=== PATIENT | female | born 1980 | race Caucasian/White ===

== ENCOUNTER → 2023-09-08 15:12 | Outpatient (REF) | payer OTHER, SELFPAY | LOC: WDC 15:12 | PROVIDERS: ATTENDING PHYSICIAN Nurse Practitioner Primary Care | DX: Z12.31 Encounter for screening mammogram for malignant neoplasm of breast (principal) | CPT/HCPCS: 77063; 77067 ==

== ENCOUNTER 2023-11-17 07:50 | Outpatient (RCR) | payer OTHER, SELFPAY ==
[2023-10-26 11:30] VITALS: BP 152/99
[2023-10-26] MEDS: NSS 1000 IV ×2 (11:43→12:43)
[2023-11-14 10:29] VITALS: BP 145/100
[2023-11-14] MEDS: NSS 1000 IV ×2 (10:29→11:30)
[2023-11-14] MEDS: ATIVAN 3 ML IV (10:59)
[2023-11-14] MEDS: ATIVAN 3 MG IV (10:59)
[2023-11-17 08:00] VITALS: BP 111/77
[2023-11-17] MEDS: NSS 1000 IV (08:00)
--- NOTE | 2023-11-17 09:04 | PTCARENOTE ---
Pt's labs back from 11/14/23, pt's potassium level at 2.8; Dr. Lopez notified via office and verbal orders obtained for KCL 40meq IV over 4 hours, and to have pt call office for follow up labs. Pt made aware of plan, will follow.
[2023-11-17] MEDS: KCL 1020 MEQ IV (09:16)
== END 2023-11-21 23:59 | disposition home or self-care (01) ==
LOC: OID 07:50
PROVIDERS: ATTENDING PHYSICIAN Internal Medicine; FAMILY PHYSICIAN Nurse Practitioner Primary Care
DX: R11.15 Cyclical vomiting syndrome unrelated to migraine (principal)
CPT/HCPCS: 96360; 96361; 96365; 96366; 96374

== ENCOUNTER → 2023-12-09 11:11 | Outpatient (REF) | payer OTHER, SELFPAY | LOC: RCS 11:11 | PROVIDERS: ATTENDING PHYSICIAN Nurse Practitioner Primary Care | DX: I10 Essential (primary) hypertension (principal); G90.1 Familial dysautonomia [Riley-Day]; G62.89 Other specified polyneuropathies | CPT/HCPCS: 93306 ==

== ENCOUNTER 2024-01-10 13:40 | Outpatient (RCR) | payer OTHER, SELFPAY ==
[2024-01-10] MEDS: NSS 1000 IV ×2 (13:53→15:01)
[2024-01-10 14:12] VITALS: BP 145/88
== END 2024-01-21 23:59 | disposition home or self-care (01) ==
LOC: OID 13:40
PROVIDERS: ATTENDING PHYSICIAN Internal Medicine; FAMILY PHYSICIAN Nurse Practitioner Primary Care
DX: R11.15 Cyclical vomiting syndrome unrelated to migraine (principal)
CPT/HCPCS: 96360; 96361

== ENCOUNTER 2024-02-01 09:11 | Outpatient (RCR) | payer OTHER, SELFPAY ==
[2024-02-01 07:30] VITALS: BP 132/97
[2024-02-01] MEDS: NSS 1000 IV ×2 (09:34→10:37)
[2024-02-01 11:40] VITALS: BP 138/99
== END 2024-02-21 23:59 | disposition home or self-care (01) ==
LOC: OID 09:11
PROVIDERS: ATTENDING PHYSICIAN Internal Medicine; FAMILY PHYSICIAN Nurse Practitioner Primary Care
DX: R11.15 Cyclical vomiting syndrome unrelated to migraine (principal)
CPT/HCPCS: 96360; 96361

== ENCOUNTER 2024-03-21 08:15 | Outpatient (RCR) | payer OTHER, SELFPAY ==
[2024-03-21] MEDS: NSS 1000 IV ×2 (08:48→10:25)
[2024-03-21 08:51] VITALS: BP 155/91
[2024-03-21] MEDS: ATIVAN 1 ML IV (08:55)
[2024-03-21] MEDS: ATIVAN 1 MG IV (08:55)
== END 2024-03-22 09:01 | disposition home or self-care (01) ==
LOC: OID 08:15
PROVIDERS: ATTENDING PHYSICIAN Internal Medicine; FAMILY PHYSICIAN Nurse Practitioner Primary Care
DX: R11.15 Cyclical vomiting syndrome unrelated to migraine (principal)
CPT/HCPCS: 96360; 96361; 96374

== ENCOUNTER 2024-03-25 20:09 | Emergency (ER) | payer OTHER, SELFPAY ==
[2024-03-25 20:12] VITALS: BP 137/98
[2024-03-25 20:29] LABS: % Basophils 0.2 % (0-2); % Eosinophils 0.5 % (0-6); % Immature Granulocytes 0.6 % (0-0.5); % Lymphocytes 28.1 % (20.5-51.1); % Monocytes 10.3 % (1.7-9.3); % Neutrophils 60.3 % (42.2-75.2); Absolute Immature Granulocytes 0.1 10^3/uL (0-0.05); Absolute Lymphocytes 2.4 10^3/uL (1.2-3.4); Absolute Monocytes 0.9 10^3/uL (0.1-0.6); Absolute Neutrophils 5.2 10^3/uL (1.4-6.5); Hematocrit 39.1 % (37.0-47.0); Mean Corp Hgb Conc. 35.8 g/dL (33.0-37.0); Mean Corpuscular Hgb 32.8 pg (27.0-31.0); Mean Corpuscular Volume 91.6 fL (81.0-99.0); Mean Platelet Volume 9.1 fL (7.4-10.4); Nucleated Red Blood Cells % 0 %; Platelet Count 250 10^3/uL (130-400); Red Blood Cell Count 4.27 10^6/uL (4.20-5.40); Red Cell Dist. Width 12.6 % (11.5-14.5); White Blood Cell Count 8.7 10^3/uL (4.8-10.8)
[2024-03-25 20:42] LABS: HCG, Serum Qualitative Screen Negative
[2024-03-25 21:03] LABS: ALT (SGPT) 26 U/L (0-35); AST (SGOT) 32 U/L (14-36); Albumin 4.8 g/dl (3.5-5.0); Alkaline Phosphatase 77 U/L (38-126); Blood Urea Nitrogen 14 mg/dl (7-17); Carbon Dioxide 26 mmol/L (22-30); Chloride 95 mmol/L (98-107); Glucose 121 mg/dl (70-99); Lipase 53 U/L (23-300); Potassium 3.1 mmol/L (3.5-5.1); Sodium 136 mmol/L (135-145); Total Bilirubin 1.3 mg/dl (0.2-1.3); Total Protein 7.9 g/dl (6.3-8.2); eGFR > 60.00
--- NOTE | 2024-03-25 21:30 | ED.GENMED ---
History of Present Illness
General
Chief Complaint: Abdominal Symptoms
Source: patient
Exam Limitations: none
Time Seen by Provider: 03/25/24 20:45
History of Present Illness
History of Present Illness:
This is a 44 year old female that comes in with c/o cyclical vomiting. States that this started on Monday and she went on to the Infusion center for IV fluids. States that this helped a little but then on Monday night she awoke at 4am
and started to vomit again. Then today she started vomiting at 4am to 12 noon. States that she has not been able to eat. States that her abd is sore and has the nausea with the vomiting. Denies any fever, chills, chest pain, SOB, diarrhea,
headache, dizziness, urinary burning.
Past History
Past History
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
ED Past Surgical History: None
Social History
Tobacco: Non-smoker
Alcohol: Occasional
Personal:
Living: with family
Employment: Employed
Review of Systems
Review of Systems
All Other Systems: ROS reviewed and negative except as documented in HPI and ROS
Constitutional: Reports no symptoms; Denies fever or chills
EENT: Reports no symptoms
Respiratory: Reports no symptoms; Denies cough or trouble breathing
Cardiac: Reports no symptoms; Denies chest pain
ABD/GI: Reports abdominal pain, nausea and vomiting; Denies diarrhea
: Reports no symptoms; Denies urgency
Musculoskeletal: Reports no symptoms
Skin: Reports no symptoms
Neurological: Reports no symptoms; Denies dizzy or headache
Psychiatric: Reports no symptoms
Phy Exam
General Physical Exam
General Presentation: no apparent distress
General age: appears stated age
General Skin: warm and dry
General Habitus: normal
General Mental: alert
General Hydration: dry mucous membranes
ENT Exam
ENT Exam: TM's normal, pharynx normal and neck supple
Eye Exam
Eye Exam: EOMI
Cardiovascular Exam
Cardiovascular Exam: regular rate/rhythm, no edema, no murmur and normal peripheral pulses
Pulmonary Exam
Pulmonary Exam: lungs clear, no respiratory distress, no rales, chest non tender, no crackles, no rhonchi, no wheezing and no cough
Gastrointestinal Exam
Gastrointestinal Exam: normal bowel sounds, non tender, soft, no organomegaly, no pulsatile mass and non distended
Musculoskeletal Exam
Musculoskeletal Exam: full ROM and no edema
Skin Exam
Skin Exam: normal color, warm/dry, no rash and no petechia
Psychiatric Exam
Psychiatric Exam: normal mood/affect
Course
Orders/Labs/Results
Orders:
Orders
03/25/24 20:19
Test Result ONCE
03/25/24 20:23
Complete Blood Count/With Diff Urgent
Comprehensive Metabolic Panel Urgent
HCG, Serum Qualitative Screen Urgent
Lipase Urgent
03/25/24 21:21
0.9% Sodium Chloride 1000 ml [Nss] 1,000 ml IV BOLUS
Ondansetron Injectable [Zofran] 4 mg IV NOW STA
03/25/24 21:22
Potassium Chloride Powder [Klor-Con] 40 meq PO NOW STA
03/25/24 21:37
Pantoprazole [Protonix IV] 40 mg IV NOW STA
03/25/24 23:01
Ondansetron Injectable [Zofran] 4 mg .ROUTE .STK-MED ONE
03/25/24 23:02
Ondansetron Injectable [Zofran] 4 mg IV NOW STA
03/25/24 23:09
0.9% Sodium Chloride 1000 ml [Nss] 1,000 ml IV BOLUS
Abnormal Lab Results
03/25/24
20:23
MCH 32.8 H pg
(27.0-31.0)
Abs Immat Gran (auto) 0.1 H 10^3/uL
(0-0.05)
Absolute Monos (auto) 0.9 H 10^3/uL
(0.1-0.6)
Immature Gran % 0.6 H %
(0-0.5)
Monocytes % 10.3 H %
(1.7-9.3)
Potassium 3.1 L mmol/L
(3.5-5.1)
Chloride 95 L mmol/L
(98-107)
Creatinine 1.1 H mg/dL
(0.6-1.0)
Glucose 121 H mg/dl
(70-99)
03/25/24 20:23
03/25/24 20:23
Potassium slighty low. Chloride low. glucose nonfasting. HCG negative. Lipase normal at 53
Vital Signs
Initial and Last Documented VS:
Initial Vital Signs
Temp Pulse Resp BP Pulse Ox
98.1 F 115 20 137/98 100
03/25/24 20:12 03/25/24 20:12 03/25/24 20:12 03/25/24 20:12 03/25/24 20:12
Last Documented Vital Signs
Temp Pulse Resp BP Pulse Ox
98.1 F 115 20 137/98 100
03/25/24 20:12 03/25/24 20:12 03/25/24 20:12 03/25/24 20:12 03/25/24 20:12
MDM/Problems Addressed
Differential Diagnosis Includes:
cyclical vomiting
MDM/Problems Addressed:
this is a 44 year old female that comes in with c/o cyclical vomiting. States that this started on Monday and on she went to the Infusion centre and had IV fluids. This helped some but the vomiting came back on Monday night.
will check labs, give IV fluids and medication.
Back into see patient. Patient states that the nausea is better but she still does not feel like she needs to Urinate. Will give Second liter.
Back into see patient. Patient is feeling better. Got up to the BR to try and urinate at this time. Will discharge patient home.
Chronic conditions affecting care:
History of Cyclical vomiting
Acute Exacerbation and/or Progression of Chronic Illness:
Cyclical vomiting
*Pulse Oximetry
Patient hypoxic: no
*EKG
Interpreted by ED Provider?: NA
Rate: EKG- N/A
*Scrap Breaker Interpretation
Rate: Scrap Breaker- N/A
*Critical Care Note
Total Time (30-74mins, 75-104mins- exclusive of procedures): Not Applicable
ED Attending Note
-
Portions of this chart may have been created with voice recognition software.� Occasional wrong word or��sound alike� substitutions may have occurred due to the inherent limitations of voice recognition software.
Discharge Plan
Departure
Patient Disposition: Home (Routine Discharge)
Date of Disposition: 03/26/24
Time of Disposition: 01:24
Patient with high blood pressure during this ER visit?: Yes
Condition: Good
Covid-19: Not Applicable
Discharge Problem:
Cyclical vomiting
Instructions: Nausea and Vomiting, Adult (DC), BLOOD PRESSURE
Prescriptions:
New
ondansetron 4 mg tablet,disintegrating
4 mg PO Q8H PRN (Reason: nausea and vomiting) Qty: 15 0RF
No Action
cyanocobalamin (vitamin B-12) 1,000 MCG tablet
1,000 mcg PO HS
pantoprazole 40 MG tablet,delayed release (DR/EC)
40 mg PO DAILY
folic acid 1 MG tablet
1 mg PO HS
cholecalciferol (vitamin D3) 2,000 UNITS tablet
2,000 units PO HS
Patient Comments:
ON HOLD
ondansetron HCl [Zofran] 4 mg Tablet
4 mg PO Q8H PRN (Reason: n/v)
prochlorperazine [Compazine] 25 mg Suppository
25 mg MS Q12H PRN (Reason: n/v)
metoclopramide HCl [Reglan] 10 mg Tablet
5 mg PO Q6H PRN (Reason: vomiting)
famotidine 40 mg Tablet
40 mg PO HS PRN (Reason: REFLUX)
nadolol
5 mg PO BID
amitriptyline 10 MG tablet
100 mg PO HS
Referrals:
Veronica Crump CRNP [Family Provider] - Follow up in 2-3 days
Activity Restrictions/Additional Instructions:
As discussed, your blood work shows that your potassium was slightly low. Please increase your water intake to 8-8oz glasses daily. Please start to eat light foods and then advance as tolerated. Follow up with the family doctor for recheck. Use
Zofran as needed for nausea and vomiting. A prescription has been sent to your Pharmacy. IF YOU HAVE ANY OTHER CONCERNS PLEASE RETURN TO THE EMERGENCY ROOM.
Interventions
Interventions:
*Risk Screen - Suicide Last Done: 03/25/24 20:12
*General Assessment Last Done: 03/25/24 20:12
*Neglect/Abuse Screening Last Done: 03/25/24 20:12
ED- Fall Risk Assessment Last Done: 03/25/24 20:12
*ED COVID-19 Vaccine History Last Done: 03/25/24 20:12
JT-[id number]-Yoxamrsuqb Assessment Last Done: 03/25/24 21:37
Discharge Date and Time
Print Language: TELUGU
[2024-03-25] MEDS: KLOR-CON 40 MEQ PO (21:40)
[2024-03-25] MEDS: NSS 1000 IV ×2 (21:41→23:15)
[2024-03-25] MEDS: PROTONIX IV 40 MG IV (21:46)
[2024-03-25] MEDS: ZOFRAN 4 MG IV (23:02)
[2024-03-26] VITALS: BP 129/77
== END 2024-03-26 02:03 | disposition home or self-care (01) ==
LOC: EMR 20:09
PROVIDERS: Emergency Medicine; EMERGENCY PHYSICIAN Emergency Medicine; FAMILY PHYSICIAN Nurse Practitioner Primary Care
DX: R11.15 Cyclical vomiting syndrome unrelated to migraine (principal); I10 Essential (primary) hypertension; M35.00 Sjogren syndrome, unspecified; K21.9 Gastro-esophageal reflux disease without esophagitis
CPT/HCPCS: 99284; 96374; 96375; 96376; 96361; 80053; 83690; 84703; 85025

== ENCOUNTER → 2024-04-18 06:25 | Day surgery (SDC) | payer OTHER, SELFPAY | LOC: GI 06:25 | PROVIDERS: ATTENDING PHYSICIAN Internal Medicine | DX: R13.10 Dysphagia, unspecified (principal); K44.9 Diaphragmatic hernia without obstruction or gangrene | CPT/HCPCS: 43249 ==

== ENCOUNTER → 2024-09-12 15:39 | Outpatient (REF) | payer OTHER, SELFPAY | LOC: WDC 15:39 | PROVIDERS: ATTENDING PHYSICIAN Nurse Practitioner Primary Care | DX: Z12.31 Encounter for screening mammogram for malignant neoplasm of breast (principal) | CPT/HCPCS: 77063; 77067 ==

== ENCOUNTER → 2025-01-08 14:06 | Outpatient (REF) | payer OTHER, SELFPAY | LOC: RAD 14:06 | PROVIDERS: ATTENDING PHYSICIAN Nurse Practitioner Primary Care | DX: I83.90 Asymptomatic varicose veins of unspecified lower extremity (principal); R60.0 Localized edema | CPT/HCPCS: 93970 ==